=== PATIENT | female | born 1935 | race Caucasian/White ===

== ENCOUNTER 2017-05-20 12:08 | Inpatient (IN) | payer MEDICARE ==
[~2017-05-20] VITALS: Ht 162.6 cm; Wt 54.4 kg
[~2017-05-20 12:08] MED LIST: AMITIZA24 MCG PO; AMLODIPINE BESYL5 MG PO; CARVEDILOL12.5 MG PO; COREG12.5 MG PO; CYANOCOBAL1000 MCG/M IM; FISH OIL 1,2001 EACH PO; FUROSEMIDE40 MG PO; GABAPENTIN400 MG PO; GUIATUSS AC SY120 ML PO; HYDRALAZINE HCL25 MG PO; HYDRALAZINE HCL50 MG PO; HYDROCODON-ACE1 EA12 PO; I-CAPS AREDS S1 EACH PO; ICAPS TABLET1 EACH PO; IRON325 MG; ISORDIL40 MG PO; ISOSORBIDE MONO30 MG PO; LASIX20 MG PO; LEVAQUIN250 MG PO; LEVOCETIRIZINE D5 MG PO; LOSARTAN POTASS25 MG PO; LOVASTATIN20 MG PO; LOVASTATIN40 MG PO; MAGNESIUM OXID400 MG PO; METOPROLOL SUC100 MG PO; MIRTAZAPINE15 MG PO; NEURONTIN400 MG PO; NITROFURANTOIN100 MG PO; NORCO 10-325 T1 EACH; NORCO 7.5-3251 EACH PO; NORVASC10 MG PO; OMEGA 3 1,0001 EACH PO; ROPINIROLE HCL1 MG PO; SENOKOT8.6 MG PO; SODIUM BICARBO650 MG PO; TEMAZEPAM30 MG PO; WARFARIN SODIUM2 MG PO; WARFARIN SODIUM3 MG PO
[2017-05-20 14:00] LABS: BASOPHILS # (AUTO) 0.1 (0.0-0.1); BASOPHILS % 0.5 % (0.0-1.0); EOSINOPHILS # (AUTO) 0.1 (0.0-0.4); EOSINOPHILS % 0.5 % (0.0-6.0); HEMATOCRIT 26.3 % (34.2-44.1); LYMPHOCYTES # (AUTO) 0.9 (1.0-3.2); LYMPHOCYTES % 7.1 % (18.0-39.1); MEAN CORPUSCULAR HEMOGLOBIN 33.1 pg (28-32); MEAN CORPUSCULAR HGB CONC 30.8 g/dL (31-35); MEAN CORPUSCULAR VOLUME 107.3 fL (81-99); MONOCYTES # (AUTO) 0.6 (0.2-0.8); MONOCYTES % 4.2 % (4.4-11.3); NEUTROPHILS # (AUTO) 11.6 (2.1-6.9); NEUTROPHILS % 87.2 % (38.7-80.0); PLATELET COUNT 240 x10e3/uL (140-360); RED BLOOD COUNT 2.45 x10e6/uL (3.6-5.1); RED CELL DISTRIBUTION WIDTH 13.8 % (11.7-14.4)
[2017-05-20 14:03] LABS: HEMOGLOBIN 8.1 g/dL (12.0-16.0)
[2017-05-20] MEDS ORDERED: CEFEPIME HCL 2 GM VIAL IV SCH (17:00)
--- NOTE | 2017-05-20 17:31 | History and Physical ---
CHIEF COMPLAINT: Persistent fever and low oxygen level. HISTORY OF PRESENT ILLNESS: This is an 81-year-old white woman who presents to [facility] emergency room with a 1-week history of low-grade fever and slight shortness of breath. According to family members, the patient's oxygen saturations have been 85% to 86% at home on 2 liters of oxygen via nasal cannula. The patient was treated for a urinary tract infection a week ago with oral levofloxacin, which she fully completed. The patient states she has slight cough. She denies any chest pain or tightness. The patient does complain of mild shortness of breath as well as subjective fevers. In the emergency room, she was found to have white blood cell count of 13,200 with 87% segmented neutrophils. The patient's hemoglobin is 8.1 grams%. The patient is found to have a B-natriuretic peptide level of 1010. Also, the patient is found to have a creatinine of 2.7, which is above her baseline. In August of 2012, the patient's BUN and creatinine were 36 and 1.72 respectively. Also, in the emergency room the patient had chest x-ray done which revealed left lower lobe airspace opacity. The patient was admitted for further evaluation and treatment. REVIEW OF SYSTEMS: GENERAL: Her weight has been stable. She has had recorded fever last week. No chills. HEENT: No headaches, no visual changes. CARDIOVASCULAR/RESPIRATORY: Slight shortness of breath and documented hypoxia over the last week. Slight cough. No chest pain or tightness. GI: No nausea, vomiting, diarrhea or constipation. : Treated for urinary tract infection a week ago with 7 days or oral levofloxacin. NEUROMUSCULAR: Denies any limb weakness or numbness. ALLERGIES: 1. SULFA ANTIBIOTICS. 2. CLINDAMYCIN. 3. ZOLPIDEM. HOME MEDICATIONS: 1. Amlodipine 5 mg daily. 2. Ferrous sulfate 325 mg daily. 3. Guaifenesin with codeine 5 mL q.4 h. p.r.n. cough. 4. Hydralazine 50 mg t.i.d. 5. Isosorbide mononitrate 30 mg b.i.d. 6. Mirtazapine 30 mg nightly. 7. Sodium bicarbonate 600 mg b.i.d. 8. I-Caps 1 b.i.d. 9. Warfarin 3 mg daily. PAST MEDICAL HISTORY: 1. Chronic diastolic congestive heart failure. 2. Stage 4 chronic kidney disease. 3. Atrial fibrillation. 4. Hypertensive heart disease. 5. History of recurrent urinary tract infections. 6. Restless leg syndrome. 7. Hyperlipidemia. 8. Lumbar disease. 9. Chronic constipation. 10. 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 PAST SURGICAL HISTORY: Total abdominal hysterectomy with bilateral salpingo-oophorectomy. FAMILY HISTORY: Father had congestive heart failure. SOCIAL HISTORY: She is a . She lives alone, but she has 24-hour caregivers as well as 3 adult daughters who are very much involved in her health care needs. The patient quit smoking tobacco in 1989. She drinks alcohol very rarely and only in social situations. PHYSICAL EXAMINATION GENERAL: She is awake, alert and fluent. She is very pleasant and cooperative with exam. She is completely lucid. VITAL SIGNS: Blood pressure 190/85, pulse 94, respiratory rate 18, oxygen saturation currently 97% on 4 liters of oxygen, but at home she was 85% on 2 liters of oxygen. Also, this morning her temperature was 100.5, according to her adult daughter. 5 foot 4 inches and 120 lbs. INTEGUMENT: Skin is warm and dry. No pallor, jaundice, diaphoresis. HEENT: Anicteric sclerae with moist mucous membranes. NECK: Supple. No evidence of jugular venous distention. CARDIOVASCULAR: Distant heart sounds. Regular rate and rhythm. LUNGS: Diminished breath sounds at the bases. ABDOMEN: Benign. EXTREMITIES: No edema or deformity. NEUROLOGIC: Intact. ASSESSMENT 1. Left lower lobe pneumonia, likely gram-negative inga. 2. Ddgyy-vp-crcuzaa renal failure. 3. Npaxf-io-bhrtaro diastolic congestive heart failure. 4. Hypertensive heart disease. PLAN: 1. Will check her prothrombin time and INR level since the patient is on warfarin therapy. 2. Will follow renal function. 3. Will start intravenous furosemide for the patient's acute congestive heart failure and acute renal failure. 4. Order blood cultures. 5. Will start intravenous antibiotics. 6. Will follow electrolytes. 7. Mobilize with physical therapy. 8. Follow the patient's hemoglobin and hematocrit. I spent 45 minutes in the care of this patient. Job#: [id number] REHAN BETANCOURT
[2017-05-20] MEDS ORDERED: FUROSEMIDE INJ 10 MG/ML 4 ML VIAL IV SCH (18:00)
[2017-05-20] MEDS: ALBUTEROL/IPRATROPIUM 3 ML NEB NEB SCH (19:00)
[2017-05-20] MEDS: HYDROCODONE/APAP 10MG-325MG TAB PO PRN (19:56)
[2017-05-20] MEDS ORDERED: SODIUM CHLORIDE 0.9% 250ML 250 ML ONE (19:58)
[2017-05-20] MEDS: CEFEPIME HCL 2 GM VIAL IV SCH ×2 (20:00→21:50)
[2017-05-20] MEDS ORDERED: CODEINE PHOSPHATE PO PRN (20:45)
[2017-05-20] MEDS ORDERED: GUAIFENESIN PO PRN (20:45)
[2017-05-20] MEDS ORDERED: NON-FORMULARY MEDICATION (Hydralazine Hcl 50 MG) PO SCH (21:00)
[2017-05-20 21:23] LABS: INR 0.97; PROTHROMBIN TIME 13.4 seconds (11.9-14.5)
[2017-05-20] MEDS: MIRTAZAPINE 15 MG TAB PO SCH (21:50)
[2017-05-20 21:51] LABS: FERRITIN 237.67 ng/mL (4.63-204.00)
[2017-05-20] MEDS: HYDRALAZINE HCL 25 MG TAB PO SCH (22:11)
[2017-05-20 22:25] VITALS: BP 166/77
[2017-05-21] VITALS (8 sets, daily range): BP systolic 116–158; BP diastolic 53–70
[2017-05-21] MEDS: HYDROCODONE/APAP 10MG-325MG TAB PO PRN ×3 (05:52→20:24)
[2017-05-21 06:40] LABS: BASOPHILS # (AUTO) 0.1 (0.0-0.1); BASOPHILS % 0.6 % (0.0-1.0); EOSINOPHILS # (AUTO) 0.2 (0.0-0.4); HEMATOCRIT 26.5 % (34.2-44.1); HEMOGLOBIN 8.1 g/dL (12.0-16.0); LYMPHOCYTES % 13.2 % (18.0-39.1); MEAN CORPUSCULAR HEMOGLOBIN 32.3 pg (28-32); MEAN CORPUSCULAR HGB CONC 30.6 g/dL (31-35); MEAN CORPUSCULAR VOLUME 105.6 fL (81-99); MONOCYTES # (AUTO) 0.6 (0.2-0.8); NEUTROPHILS % 75.8 % (38.7-80.0); PLATELET COUNT 225 x10e3/uL (140-360); RED BLOOD COUNT 2.51 x10e6/uL (3.6-5.1); RED CELL DISTRIBUTION WIDTH 13.7 % (11.7-14.4)
[2017-05-21 07:11] LABS: ALBUMIN 3.1 g/dL (3.5-5.0); ALBUMIN/GLOBULIN RATIO 0.9 (0.8-2.0); ANION GAP 15.6 mmol/L (8-16); CREATININE, SERUM 2.86 mg/dL (0.57-1.11); POTASSIUM 4.6 mmol/L (3.5-5.1)
--- NOTE | 2017-05-21 07:31 | Diagnostic Imaging Report ---
PROCEDURE: A single AP view of the chest. COMPARISON: Portable chest 08/27/2016. INDICATIONS: NEW ADMISSION FINDINGS: Lines/tubes: None. Lungs: Bibasilar airspace opacities. Stable chronic parenchymal changes. Pleura: There is no pleural effusion or pneumothorax. Heart and mediastinum: The heart and the mediastinum are unremarkable. Bones: No acute bony abnormality. Degenerative changes of the thoracic spine. IMPRESSION: Bibasilar airspace opacities may represent a developing pneumonia. Stable chronic parenchymal changes may represent fibrosis. Dictated by: Claudio Lerma M.D. on 05/21/2017 at 7:40 Electronically approved by: Claudio Lerma M.D. on 05/21/2017 at 7:40
[2017-05-21] MEDS: COPPER PO SCH ×2 (08:41→17:00)
[2017-05-21] MEDS: VIT E PO SCH ×2 (08:41→17:00)
[2017-05-21] MEDS: VIT C PO SCH ×2 (08:41→17:00)
[2017-05-21] MEDS: ZINC PO SCH ×2 (08:41→17:00)
[2017-05-21] MEDS: VIT A PO SCH ×2 (08:41→17:00)
[2017-05-21] MEDS ORDERED: LEVOFLOXACIN 500MG/D5W 100ML 100 ML IV ONE (09:00)
[2017-05-21] MEDS ORDERED: MAGNESIUM HYDROXIDE 30 ML UDC PO ONE (09:00)
[2017-05-21] MEDS ORDERED: FERROUS SULFATE 325 MG TAB PO SCH (09:00)
[2017-05-21] MEDS: FUROSEMIDE INJ 10 MG/ML 4 ML VIAL IV SCH ×2 (09:00→20:26)
[2017-05-21] MEDS ORDERED: FERROUS SULFATE SCH (09:00)
[2017-05-21] MEDS: ISOSORBIDE MONONITRATE 30 MG TAB CR PO SCH ×2 (09:02→17:32)
[2017-05-21] MEDS: HYDRALAZINE HCL 25 MG TAB PO SCH ×3 (09:02→21:19)
[2017-05-21] MEDS: SODIUM BICARBONATE 650 MG TAB PO SCH ×2 (09:03→17:32)
[2017-05-21] MEDS: AMLODIPINE BESYLATE 5 MG TAB PO SCH (09:03)
[2017-05-21] MEDS ORDERED: SODIUM CHLORIDE 0.9% 250ML 250 ML ONE (09:39)
[2017-05-21] MEDS: METOPROLOL SUCCINATE 25 MG TAB XL PO SCH (09:49)
[2017-05-21] MEDS: SENNA-S TABLET PO SCH ×2 (09:49→17:32)
[2017-05-21] MEDS ORDERED: WARFARIN SOD 2 MG TAB PO SCH (17:00)
[2017-05-21] MEDS: WARFARIN SOD 3 MG TAB PO SCH (17:31)
[2017-05-21] MEDS: FERROUS SULFATE 325 MG TAB PO SCH (17:31)
[2017-05-21] MEDS: CEFEPIME HCL 2 GM VIAL IV SCH (20:24)
[2017-05-21] MEDS: MIRTAZAPINE 15 MG TAB PO SCH (21:18)
[2017-05-22] VITALS (7 sets, daily range): BP systolic 121–180; BP diastolic 57–72
[2017-05-22] MEDS: ALBUTEROL/IPRATROPIUM 3 ML NEB NEB SCH ×4 (01:00→21:00)
[2017-05-22] MEDS: HYDROCODONE/APAP 10MG-325MG TAB PO PRN ×3 (05:06→20:45)
[2017-05-22 07:31] LABS: BASOPHILS # (AUTO) 0.1 (0.0-0.1); BASOPHILS % 0.8 % (0.0-1.0); EOSINOPHILS # (AUTO) 0.2 (0.0-0.4); EOSINOPHILS % 2.1 % (0.0-6.0); HEMATOCRIT 27.9 % (34.2-44.1); HEMOGLOBIN 8.7 g/dL (12.0-16.0); LYMPHOCYTES # (AUTO) 1.2 (1.0-3.2); LYMPHOCYTES % 14.5 % (18.0-39.1); MEAN CORPUSCULAR HEMOGLOBIN 32.7 pg (28-32); MEAN CORPUSCULAR HGB CONC 31.2 g/dL (31-35); MEAN CORPUSCULAR VOLUME 104.9 fL (81-99); MONOCYTES # (AUTO) 0.8 (0.2-0.8); MONOCYTES % 8.9 % (4.4-11.3); NEUTROPHILS # (AUTO) 6.2 (2.1-6.9); NEUTROPHILS % 73.2 % (38.7-80.0); PLATELET COUNT 239 x10e3/uL (140-360); RED BLOOD COUNT 2.66 x10e6/uL (3.6-5.1); RED CELL DISTRIBUTION WIDTH 13.4 % (11.7-14.4)
[2017-05-22 07:39] LABS: INR 0.96; PROTHROMBIN TIME 13.3 seconds (11.9-14.5)
[2017-05-22 07:55] LABS: ANION GAP 15.6 mmol/L (8-16); CALCIUM 8.9 mg/dL (8.4-10.2); CREATININE, SERUM 3.2 mg/dL (0.57-1.11); POTASSIUM 4.6 mmol/L (3.5-5.1)
[2017-05-22] MEDS ORDERED: LEVOFLOXACIN 250MG/D5W 50ML 50 ML IV SCH (09:00)
[2017-05-22] MEDS: COPPER PO SCH ×2 (09:00→16:32)
[2017-05-22] MEDS: VIT E PO SCH ×2 (09:00→16:32)
[2017-05-22] MEDS: FUROSEMIDE INJ 10 MG/ML 4 ML VIAL IV SCH (09:00)
[2017-05-22] MEDS: VIT C PO SCH ×2 (09:00→16:32)
[2017-05-22] MEDS: ZINC PO SCH ×2 (09:00→16:32)
[2017-05-22] MEDS: SENNA-S TABLET PO SCH ×2 (09:00→20:45)
[2017-05-22] MEDS: VIT A PO SCH ×2 (09:00→16:32)
[2017-05-22] MEDS: SODIUM BICARBONATE 650 MG TAB PO SCH ×2 (09:15→20:45)
[2017-05-22] MEDS: HYDRALAZINE HCL 25 MG TAB PO SCH ×3 (09:15→20:45)
[2017-05-22] MEDS: AMLODIPINE BESYLATE 5 MG TAB PO SCH (09:15)
[2017-05-22] MEDS: FERROUS SULFATE 325 MG TAB PO SCH ×2 (09:15→16:32)
[2017-05-22] MEDS: ISOSORBIDE MONONITRATE 30 MG TAB CR PO SCH ×2 (09:15→20:45)
[2017-05-22] MEDS: METOPROLOL SUCCINATE 25 MG TAB XL PO SCH (09:15)
[2017-05-22] MEDS: WARFARIN SOD 3 MG TAB PO SCH (16:32)
--- NOTE | 2017-05-22 16:34 | Diagnostic Imaging Report ---
PROCEDURE:US RETROPERITONEAL ( KIDNEY ). COMPARISON:Patients [facility], CT, CT ABDOMEN/PELVIS WO, 06/27/2015, 10:13. Patients [facility], US, US RETROPERITONEAL ( KIDNEY )., 06/10/2015, 15:38. INDICATIONS:Acute On Chronic Renal Failure TECHNIQUE: Christine-scale and color sonographic images of the bilateral kidneys and bladder where obtained in transverse and longitudinal planes. FINDINGS: RIGHT KIDNEY: 8.3 cm, cortex 1.0 cm Cysts: None Solid masses: None Stones: None Hydronephrosis: None Echogenicity: Increased LEFT KIDNEY: 8.3 cm, cortex 2.0 cm Cysts: 1.2 x 1.0 x 1.1 cm cystic, anechoic lesion in the inferolateral aspect, which was not clearly seen on the prior exam. A previously visualized 2.7 x 2.0 x 2.5 cm cystic lesion in the mid medial left kidney is not seen in the current exam. Solid masses: None Stones: None Hydronephrosis: None Echogenicity: Increased Bladder: No focal lesions. No wall thickening. Bilateral ureteral jets are identified. CONCLUSION: 1. Both kidneys are smaller than normal and given the increased cortical echogenicity, these findings are likely secondary to chronic medical renal disease. No hydronephrosis, stones, or obstruction. 2. 1.2 cm simple cyst in the inferolateral left kidney. A previously visualized 2.7 cm cystic lesion in the mid medial left kidney is not seen in the current exam. Donald García M.D. Dictated by: Donald García M.D. on 05/22/2017 at 16:43 Electronically approved by: Donald García M.D. on 05/22/2017 at 16:43
--- NOTE | 2017-05-22 16:36 | Diagnostic Imaging Report ---
PROCEDURE: Frontal and lateral views of the chest. COMPARISON: Patients [facility], DX, CHEST SINGLE (PORTABLE), 05/21/2017, 5:47. INDICATIONS: BIBASILAR PNEUMONIA FINDINGS: Exam limited by patient rotation. Lines/tubes: None. Lungs: Lungs are well-inflated. The mild prominence of the interstitial markings, likely reflecting chronic interstitial changes. Patchy left infrahilar opacity. The right lung is grossly clear. Pleura: There is no pleural effusion or pneumothorax. Heart and mediastinum: Enlarged cardiac silhouette. Central pulmonary vasculature is normal. Bones: No acute bony abnormality. Generalized osteopenia. IMPRESSION: 1. patchy left infrahilar opacity, which may reflect pneumonia, in the appropriate clinical setting. Donald García M.D. Dictated by: Donald García M.D. on 05/22/2017 at 16:46 Electronically approved by: Donald García M.D. on 05/22/2017 at 16:46
[2017-05-22] MEDS: MIRTAZAPINE 15 MG TAB PO SCH (20:45)
[2017-05-22] MEDS: CEFEPIME HCL 2 GM VIAL IV SCH ×2 (20:45→20:50)
[2017-05-23] VITALS (10 sets, daily range): BP systolic 96–190; BP diastolic 54–85
[2017-05-23] MEDS: ALBUTEROL/IPRATROPIUM 3 ML NEB NEB SCH ×2 (01:00→06:57)
[2017-05-23] MEDS: HYDROCODONE/APAP 10MG-325MG TAB PO PRN ×4 (03:08→23:07)
[2017-05-23 07:21] LABS: BASOPHILS # (AUTO) 0.1 (0.0-0.1); BASOPHILS % 0.7 % (0.0-1.0); EOSINOPHILS # (AUTO) 0.1 (0.0-0.4); EOSINOPHILS % 1.5 % (0.0-6.0); HEMATOCRIT 25.2 % (34.2-44.1); LYMPHOCYTES # (AUTO) 1.1 (1.0-3.2); LYMPHOCYTES % 12.7 % (18.0-39.1); MEAN CORPUSCULAR HEMOGLOBIN 32.8 pg (28-32); MEAN CORPUSCULAR HGB CONC 31.3 g/dL (31-35); MEAN CORPUSCULAR VOLUME 104.6 fL (81-99); MONOCYTES # (AUTO) 0.8 (0.2-0.8); MONOCYTES % 8.9 % (4.4-11.3); NEUTROPHILS # (AUTO) 6.5 (2.1-6.9); NEUTROPHILS % 75.8 % (38.7-80.0); PLATELET COUNT 231 x10e3/uL (140-360); RED BLOOD COUNT 2.41 x10e6/uL (3.6-5.1); RED CELL DISTRIBUTION WIDTH 13.4 % (11.7-14.4)
[2017-05-23 07:27] LABS: HEMOGLOBIN 7.9 g/dL (12.0-16.0)
[2017-05-23 07:30] LABS: INR 0.98; PROTHROMBIN TIME 13.5 seconds (11.9-14.5)
[2017-05-23 07:44] LABS: ANION GAP 14.7 mmol/L (8-16); CALCIUM 8.6 mg/dL (8.4-10.2); CREATININE, SERUM 3.11 mg/dL (0.57-1.11); POTASSIUM 4.7 mmol/L (3.5-5.1)
[2017-05-23] MEDS ORDERED: METOPROLOL TARTRATE INJ 1 MG/ML VIAL IV ONE (08:00)
[2017-05-23] MEDS ORDERED: METOPROLOL TARTRATE INJ 1 MG/ML VIAL ONE (08:06)
[2017-05-23] MEDS ORDERED: DIGOXIN INJ 0.25 MG/ML 2 ML AMP IV PRN (08:45)
[2017-05-23] MEDS: VIT A PO SCH ×2 (09:00→17:00)
[2017-05-23] MEDS: VIT E PO SCH ×2 (09:00→17:00)
[2017-05-23] MEDS: ZINC PO SCH ×2 (09:00→17:00)
[2017-05-23] MEDS: COPPER PO SCH ×2 (09:00→17:00)
[2017-05-23] MEDS: VIT C PO SCH ×2 (09:00→17:00)
[2017-05-23] MEDS: SENNA-S TABLET PO SCH ×2 (09:15→20:50)
[2017-05-23] MEDS: ISOSORBIDE MONONITRATE 30 MG TAB CR PO SCH ×2 (09:15→20:50)
[2017-05-23] MEDS: AMLODIPINE BESYLATE 5 MG TAB PO SCH (09:15)
[2017-05-23] MEDS: METOPROLOL SUCCINATE 25 MG TAB XL PO SCH ×2 (09:15→17:00)
[2017-05-23] MEDS: HYDRALAZINE HCL 25 MG TAB PO SCH ×3 (09:15→20:50)
[2017-05-23] MEDS: SODIUM BICARBONATE 650 MG TAB PO SCH ×2 (09:15→20:50)
[2017-05-23] MEDS: FERROUS SULFATE 325 MG TAB PO SCH ×2 (09:15→17:07)
[2017-05-23] MEDS: IPRATROPIUM BROMIDE 0.02% 2.5 ML NEB NEB SCH ×2 (13:00→22:15)
[2017-05-23] MEDS ORDERED: SODIUM CHLORIDE 0.9% 250ML 250 ML IV ONE (14:00)
[2017-05-23] MEDS ORDERED: DIGOXIN INJ 0.25 MG/ML 2 ML AMP IV ONE (15:00)
--- NOTE | 2017-05-23 15:17 | Diagnostic Imaging Report ---
EXAMINATION: Head CT HISTORY: Confusion COMPARISON: Head CT from 08/27/2016 TECHNIQUE: Multidetector axial images were obtained without contrast from the foramen magnum to the vertex . The images were reconstructed using brain and bone algorithms. Thin section brain images were reformatted into coronal and sagittal planes. Intravenous contrast: None. Motion/streaking artifact limits the evaluation of the skull base and posterior cranial fossa. FINDINGS: Parenchyma: 1. Stable mild white matter chronic microvascular ischemic changes. 2. No mass or hemorrhage. No CT evidence of acute territorial vascular insult. Extra-axial spaces:No abnormal density. No extra-axial fluid collections Brain volume: Normal for age. Ventricles: No hydrocephalus or displacement. Arteries: No density suggestive of thrombus. Dural sinuses: No abnormal density. Extra-axial spaces: No abnormal density. Foramen magnum: No mass, Chiari malformation, or basilar invagination. Sella: No obvious mass. Paranasal/mastoid sinuses: Imaged portions unremarkable. Skull/Scalp: No lytic or blastic lesions. No fractures. IMPRESSION: 1. No acute intracranial hemorrhage or cortical infarcts. 2. Stable mild chronic microvascular ischemic changes. Signed by: Dr. Lisy Lan M.D. on 05/23/2017 3:14 PM
[2017-05-23] MEDS ORDERED: SODIUM CHLORIDE 0.9% 250ML 250 ML ONE (17:14)
[2017-05-23] MEDS: MIRTAZAPINE 15 MG TAB PO SCH (20:50)
[2017-05-23] MEDS: FUROSEMIDE INJ 10 MG/ML 2 ML VIAL IV PRN (22:00)
[2017-05-23] MEDS: CEFEPIME HCL 2 GM VIAL IV SCH (22:00)
[2017-05-24] VITALS (12 sets, daily range): BP systolic 139–181; BP diastolic 63–75
[2017-05-24] MEDS: IPRATROPIUM BROMIDE 0.02% 2.5 ML NEB NEB SCH ×2 (04:08→06:35)
[2017-05-24] MEDS: FUROSEMIDE INJ 10 MG/ML 2 ML VIAL IV PRN (04:29)
[2017-05-24 07:07] LABS: BASOPHILS # (AUTO) 0.1 (0.0-0.1); EOSINOPHILS # (AUTO) 0.3 (0.0-0.4); EOSINOPHILS % 3.9 % (0.0-6.0); HEMATOCRIT 34.7 % (34.2-44.1); HEMOGLOBIN 11.3 g/dL (12.0-16.0); LYMPHOCYTES # (AUTO) 0.9 (1.0-3.2); LYMPHOCYTES % 12.9 % (18.0-39.1); MEAN CORPUSCULAR HEMOGLOBIN 31.7 pg (28-32); MEAN CORPUSCULAR HGB CONC 32.6 g/dL (31-35); MEAN CORPUSCULAR VOLUME 97.5 fL (81-99); MONOCYTES # (AUTO) 0.8 (0.2-0.8); MONOCYTES % 10.4 % (4.4-11.3); NEUTROPHILS # (AUTO) 5.1 (2.1-6.9); NEUTROPHILS % 71.5 % (38.7-80.0); PLATELET COUNT 215 x10e3/uL (140-360); RED BLOOD COUNT 3.56 x10e6/uL (3.6-5.1); RED CELL DISTRIBUTION WIDTH 15.5 % (11.7-14.4)
[2017-05-24 07:22] LABS: INR 0.93; PROTHROMBIN TIME 12.9 seconds (11.9-14.5)
[2017-05-24 07:41] LABS: ANION GAP 15.6 mmol/L (8-16); CALCIUM 9.1 mg/dL (8.4-10.2); CREATININE, SERUM 3.11 mg/dL (0.57-1.11); POTASSIUM 4.6 mmol/L (3.5-5.1)
[2017-05-24] MEDS: COPPER PO SCH (09:00)
[2017-05-24] MEDS: VIT E PO SCH (09:00)
[2017-05-24] MEDS: ZINC PO SCH (09:00)
[2017-05-24] MEDS: VIT A PO SCH (09:00)
[2017-05-24] MEDS: VIT C PO SCH (09:00)
[2017-05-24] MEDS: FERROUS SULFATE 325 MG TAB PO SCH (09:48)
[2017-05-24] MEDS: HYDROCODONE/APAP 10MG-325MG TAB PO PRN (09:48)
[2017-05-24] MEDS: HYDRALAZINE HCL 25 MG TAB PO SCH (09:48)
[2017-05-24] MEDS: METOPROLOL SUCCINATE 25 MG TAB XL PO SCH (09:49)
[2017-05-24] MEDS: AMLODIPINE BESYLATE 5 MG TAB PO SCH (09:49)
[2017-05-24] MEDS: ISOSORBIDE MONONITRATE 30 MG TAB CR PO SCH (09:49)
[2017-05-24] MEDS: SODIUM BICARBONATE 650 MG TAB PO SCH (09:49)
[2017-05-24] MEDS: SENNA-S TABLET PO SCH (09:49)
[2017-05-24] MEDS ORDERED: CEFTIN250 MG/5 M PO (10:25)
[2017-05-24] MEDS ORDERED: SENNA LAXATIVE1 EACH PO (10:26)
[2017-05-24] MEDS ORDERED: METOPROLOL SUCC25 MG PO (10:26)
[2017-05-24] MEDS ORDERED: FERROUS SULFAT325 MG PO (10:27)
--- NOTE | 2017-05-24 11:05 | Discharge Summary ---
ADMIT DIAGNOSES 1. Left lower lobe pneumonia, likely gram-negative inga. 2. Mredw-ri-ksilzdg renal failure. 3. Qokzs-to-xporkon diastolic congestive heart failure. 4. Hypertensive heart disease. 5. Paroxysmal atrial fibrillation. DISCHARGE DIAGNOSES 1. Left lower lobe pneumonia, likely gram-negative inga, resolving. 2. Stage 4 chronic kidney disease. 3. Vuyar-ep-yhizwjz diastolic congestive heart failure, resolving. 4. Hypertensive heart disease. 5. Atrial fibrillation with rapid ventricular rate, resolved. 6. Mild dementia, worsening. 7. Anemia secondary to chronic kidney disease and iron deficiency. HOSPITAL COURSE: This is an 81-year-old white woman who was initially admitted to [facility] with the diagnosis of left lower lobe pneumonia, likely gram-negative inga. She was also diagnosed with ksjbe-ks-oywnpyp renal failure and dcqdu-ae-ikipkqg diastolic congestive heart failure on admission. The patient has an underlying history of paroxysmal atrial fibrillation, but during this hospital stay she was diagnosed with atrial fibrillation with rapid ventricular rate. The patient converted spontaneously after being given intravenous metoprolol and digoxin. The patient was adamant about being a do not resuscitate code status during this hospitalization. The patient underwent a 2-D echocardiogram during this hospitalization, which revealed a preserved left ventricular ejection fraction of 55% to 60%, but did reveal moderate concentric left ventricular hypertrophy and left atrial enlargement, both consistent with diastolic heart failure. The patient's CHF symptoms did improve with intravenous furosemide. The patient's hemoglobin did get as low as 7.9 g/dL during this hospitalization. Iron studies during this hospital stay did reveal findings consistent with iron deficiency anemia with serum iron of 21 and a percent saturation of 9. The patient was transfused with units of packed red blood cells during this hospitalization. The patient's stool was checked for occult blood and it was negative. On the day of discharge, the patient's hemoglobin was 11.3 g/dL. During this hospitalization, the patient's confusion did worsen slightly. The decision was made to stop warfarin therapy during this hospitalization. CONDITION ON DISCHARGE: Stable with an overall poor prognosis. DISCHARGE MEDICATIONS 1. Ceftin 250 mg 1 p.o. b.i.d. for 7 days. 2. Senokot-S 1 p.o. b.i.d. 3. Iron sulfate 325 mg b.i.d. 4. Metoprolol succinate 25 mg b.i.d. 5. Sodium bicarbonate 650 mg b.i.d. 6. Isosorbide mononitrate 30 mg b.i.d. 7. Amlodipine 5 mg daily. 8. Hydralazine 50 mg t.i.d. 9. Itmann 10 per 325 mg 1 q.6 h. p.r.n. pain. 10. Mirtazapine 30 mg at bedtime. 11. I-Cap 1 b.i.d. FOLLOWUP INSTRUCTIONS: The patient was instructed to follow up with her attending, namely myself, Dr. Sandra Cabrera, within the next 2 weeks. Also, during this hospitalization I spoke with the family at length about end of life issues. I told the family the patient may benefit from palliative treatment in the form of home Hospice care in the near future. The family was receptive of this idea. Also, I spoke with the family at length about the risks and benefits of warfarin therapy, and the decision made was to stop warfarin therapy for several reasons. Specifically, she has iron deficiency anemia that required blood transfusion, and her cognitive status is worsening as well as and she continues to be a high fall risk. SANDRA CABRERA MD Job#: [id number] [place]
== END 2017-05-24 10:51 | disposition home or self-care (01) | DRG 177 ==
LOC: FSED 12:08 → IMCU 18:57 → OBSVTOIN 05-21 08:54 → MED/SURG 05-21 10:29
PROVIDERS: ADMIT Internal Medicine; ATTEND Internal Medicine
PROC: 30233N1 Transfusion of Nonautologous Red Blood Cells into Peripheral Vein, Percutaneous Approach (ICD-10-PCS; principal; 2017-05-23)
DX: J15.6 Pneumonia due to other Gram-negative bacteria (principal); I50.33 Acute on chronic diastolic (congestive) heart failure; N18.4 Chronic kidney disease, stage 4 (severe); N17.9 Acute kidney failure, unspecified; I48.0 Paroxysmal atrial fibrillation; I13.0 Hypertensive heart and chronic kidney disease with heart failure and stage 1 through stage 4 chronic kidney disease, or unspecified chronic kidney disease; R09.02 Hypoxemia; D64.9 Anemia, unspecified; Z88.1 Allergy status to other antibiotic agents; Z88.2 Allergy status to sulfonamides; Z87.440 Personal history of urinary (tract) infections; D63.1 Anemia in chronic kidney disease; D50.9 Iron deficiency anemia, unspecified; K59.00 Constipation, unspecified; F03.90 Unspecified dementia, unspecified severity, without behavioral disturbance, psychotic disturbance, mood disturbance, and anxiety; Z66 Do not resuscitate; Z79.01 Long term (current) use of anticoagulants
CPT/HCPCS: 36415; 36430; 70450; 71010; 71020; 76770; 80048; 80053; 82270; 82553; 82728; 83540; 83605; 83880; 84466; 84484; 85025; 85610; 86850; 86900; 86920; 87040; 87086; 87400; 93005; 93306; 94640; 96360; 99284; G0378; J0692; J1160; J1940; J1956; J7050; P9016